=== PATIENT | female | born 1965 | race Caucasian/White ===

== ENCOUNTER → 2023-06-28 | Outpatient (REF) | payer BC, SELFPAY | LOC: DHSLP | PROVIDERS: ATTENDING PHYSICIAN Internal Medicine Critical Care Medicine; FAMILY PHYSICIAN Family Medicine | DX: G47.33 Obstructive sleep apnea (adult) (pediatric) (principal) | CPT/HCPCS: 95800 ==

== ENCOUNTER 2023-08-14 07:00 | Emergency (ER) | payer BC, SELFPAY ==
[2023-08-14 07:08] VITALS: BP 180/86
[2023-08-14 07:38] VITALS: BP 164/65
--- NOTE | 2023-08-14 07:41 | ED.GENMED ---
History of Present Illness
General
Chief Complaint: Chest Pain
Source: patient
Exam Limitations: none
Time Seen by Provider: 08/14/23 07:20
History of Present Illness
History of Present Illness:
58 -year-old female with history of angina presents complaining of onset of chest pain has been persistent since she woke up this morning at 530. Has a thumping sensation to the left upper chest with associated shortness of breath. She has had
stress test. She had a catheterization. There was no large vessel disease. She is on amlodipine, isosorbide as well as sublingual nitroglycerin as needed. Sublingual tablet today. She works as a registrar here and on her way into work to
develop more discomfort and checked in for evaluation she is due for a carotid ultrasound later today. She follows with cardiology here. She notes her pain is significantly improved while sitting in bed. She also notes leg cramps last evening
which was atypical for her. She denies any recent extended travel but does note a week ago she drove 2 and half hours in a car.
Past History
Past History
ED Past Medical History: Hypercholesterolemia and NIDDM
ED Past Surgical History: Orthopedic and Tonsilectomy
Social History
Tobacco: Non-smoker
Alcohol: None
Drug: None
Personal: Single
Living: alone
Employment: Employed
Phy Exam
Physical Exam
Physical Exam:
General: Well-appearing female no acute respiratory distress HEENT: Normocephalic atraumatic
Heart: Regular rate and rhythm no audible murmurs
Lungs: Clear no wheeze or rales
Abdomen is soft nontender nondistended no guarding or rebound
Extremities: No cyanosis but mild edema noted to lower extremities bilaterally
Skin: Warm no rash
Scores
Heart Score for Chest Pain Patients
STEMI patient?: No
History: Slightly or Non-Suspicious
ECG: Normal
Age: >45 - <65 years
Risk Factors: No Risk Factors
Troponin: </= Normal Limit
Heart Score for Chest Pain Patients: 1
Heart Score Risk: 2.5% MACE over next 6 weeks
Course
Orders/Labs/Results
Orders:
Orders
08/14/23 07:01
ECG [Electrocardiogram (*1)] Urgent
Reason for Study: Chest Pain
EKG- Treatment ONCE
08/14/23 07:36
CMP [Comprehensive Metabolic Panel] Urgent
Complete Blood Count/With Diff Urgent
D-Dimer Urgent
Magnesium Urgent
Comment: ADD ON
Troponin I Urgent
08/14/23 07:41
Add On- LAB Urgent
Tests Added?: magnesium
08/14/23 08:33
CR Chest - 2 Views Urgent
Comment:
Reason For Exam: chest pain
08/14/23 10:38
Troponin I Urgent
Abnormal Lab Results
08/14/23
07:36
MPV 10.8 H fL
(7.4-10.4)
BUN 19 H mg/dl
(7-17)
Glucose 133 H mg/dl
(70-99)
08/14/23 07:36
08/14/23 07:36
Vital Signs
Initial and Last Documented VS:
Initial Vital Signs
Temp Pulse Resp BP Pulse Ox
98.4 F 90 18 180/86 98
08/14/23 07:08 08/14/23 07:08 08/14/23 07:08 08/14/23 07:08 08/14/23 07:08
Last Documented Vital Signs
Temp Pulse Resp BP Pulse Ox
98.4 F 66 10 161/65 100
08/14/23 07:08 08/14/23 09:30 08/14/23 09:30 08/14/23 09:28 08/14/23 09:30
MDM/Problems Addressed
Differential Diagnosis Includes:
Chest discomfort. Consider ACS versus recurrent angina versus PE versus referred discomfort from reflux.
EKG shows sinus rhythm without ischemic changes. Will check labs including troponin and D-dimer.
*Critical Care Note
Total Time (30-74mins, 75-104mins- exclusive of procedures): Not Applicable
Update Note
Update Note:
Initial and repeat troponin both undetectable. D-dimer negative. Chest x-ray clear. Do not suspect PE. Do not suspect ACS. Patient has documented history of angina. Could be exacerbation of such. Stable for discharge but chest pain hotline
will be activated for her.
ED Attending Note
-
Portions of this chart may have been created with voice recognition software.� Occasional wrong word or��sound alike� substitutions may have occurred due to the inherent limitations of voice recognition software.
Discharge Plan
Departure
Patient Disposition: Home (Routine Discharge)
Date of Disposition: 08/14/23
Time of Disposition: 11:20
Patient with high blood pressure during this ER visit?: No
Discharge Problem:
Chest pain
Instructions: Chest Pain CBC Follow Up
Prescriptions:
No Action
cetirizine [Zyrtec] 10 mg Tablet
10 mg PO DAILY
meloxicam 7.5 mg tablet
7.5 mg PO DAILY
estradiol 0.5 mg tablet
0.5 mg PO DAILY
atorvastatin 40 mg Tablet
40 mg PO QPM Qty: 30 0RF
aspirin 81 mg Tablet,Chewable
81 mg PO DAILY Qty: 30 0RF
isosorbide mononitrate 30 mg Tablet Extended Release 24 Hr
30 mg PO DAILY Qty: 30 0RF
amlodipine 5 mg Tablet
5 mg PO DAILY Qty: 30 0RF
pantoprazole 40 mg Tablet,Delayed Release (Dr/Ec)
40 mg PO DAILY Qty: 30 0RF
nitroglycerin 0.4 mg Tablet, Sublingual
0.4 mg sublingual [id number] PRN (Reason: chest pain) Qty: 30 0RF
(DME) Contour Next Test Strips Strip
Qty: 100 0RF
Rx Instructions:
As Directed
(DME) lancets [Color Lancets] 21 gauge Misc
Qty: 100 0RF
Rx Instructions:
As Directed
Referrals:
Wolfgang Ontiveros DO [Family Provider] -
Activity Restrictions/Additional Instructions:
Please return here for worsening symptoms otherwise follow-up with cardiology
Interventions
Interventions:
*Risk Screen - Suicide Last Done: 08/14/23 07:08
*General Assessment Last Done: 08/14/23 07:08
*Neglect/Abuse Screening Last Done: 08/14/23 07:08
ED- Fall Risk Assessment Last Done: 08/14/23 07:46
ED- Cardiac Assessment Last Done: 08/14/23 07:46
Discharge Date and Time
Print Language: ITALIAN
[2023-08-14 07:48] LABS: % Basophils 1.3 % (0-2); % Eosinophils 2.4 % (0-6); % Immature Granulocytes 0.3 % (0-0.5); % Lymphocytes 25.6 % (20.5-51.1); % Monocytes 7.4 % (1.7-9.3); Absolute Basophils 0.1 10^3/uL (0-0.2); Absolute Eosinophils 0.2 10^3/uL (0-0.7); Absolute Lymphocytes 1.6 10^3/uL (1.2-3.4); Absolute Monocytes 0.5 10^3/uL (0.1-0.6); Absolute Neutrophils 3.9 10^3/uL (1.4-6.5); Hematocrit 37.4 % (37.0-47.0); Hemoglobin 13.3 g/dL (12.0-16.0); Mean Corp Hgb Conc. 35.6 g/dL (33.0-37.0); Mean Corpuscular Hgb 29.3 pg (27.0-31.0); Mean Corpuscular Volume 82.4 fL (81.0-99.0); Mean Platelet Volume 10.8 fL (7.4-10.4); Nucleated Red Blood Cells % 0 %; Platelet Count 189 10^3/uL (130-400); Red Blood Cell Count 4.54 10^6/uL (4.20-5.40); Red Cell Dist. Width 12.5 % (11.5-14.5); White Blood Cell Count 6.2 10^3/uL (4.8-10.8)
[2023-08-14 08:00] VITALS: BP 134/60
[2023-08-14 08:00] LABS: ALT (SGPT) 23 U/L (0-35); AST (SGOT) 26 U/L (14-36); Albumin 4.7 g/dl (3.5-5.0); Alkaline Phosphatase 60 U/L (38-126); Blood Urea Nitrogen 19 mg/dl (7-17); Calcium 9.7 mg/dl (8.4-10.2); Carbon Dioxide 26 mmol/L (22-30); Chloride 105 mmol/L (98-107); Glucose 133 mg/dl (70-99); Potassium 3.7 mmol/L (3.5-5.1); Sodium 141 mmol/L (135-145); Total Bilirubin 0.5 mg/dl (0.2-1.3); Total Protein 7.4 g/dl (6.3-8.2); eGFR > 60.00
[2023-08-14 08:11] LABS: Troponin I < 0.012 ng/ml
[2023-08-14 08:18] LABS: Magnesium 2.2 mg/dl (1.6-2.3)
[2023-08-14 08:29] LABS: D-Dimer 0.38 ug/mlFEU (0.00-0.50)
[2023-08-14 09:28] VITALS: BP 161/65
[2023-08-14 10:00] VITALS: BP 131/59
[2023-08-14 11:00] VITALS: BP 137/47
[2023-08-14 11:17] LABS: Troponin I < 0.012 ng/ml
== END 2023-08-14 11:45 | disposition home or self-care (01) ==
LOC: EMR 07:00
PROVIDERS: Physician Assistant; EMERGENCY PHYSICIAN Emergency Medicine; FAMILY PHYSICIAN Family Medicine
DX: R07.89 Other chest pain (principal)
CPT/HCPCS: 99285; 71046; 80053; 83735; 84484; 85025; 85379; 93005

== ENCOUNTER → 2023-08-14 14:03 | Outpatient (REF) | payer BC, SELFPAY | LOC: RAD 14:03 | PROVIDERS: ATTENDING PHYSICIAN Internal Medicine; FAMILY PHYSICIAN Family Medicine | DX: I20.89 Other forms of angina pectoris (principal); I35.1 Nonrheumatic aortic (valve) insufficiency | CPT/HCPCS: 93880 ==

== ENCOUNTER 2023-10-10 15:08 | Emergency (ER) | payer BC, SELFPAY ==
[2023-10-10 15:21] VITALS: BP 145/71
[2023-10-10 15:54] LABS: % Basophils 1.3 % (0-2); % Eosinophils 3.2 % (0-6); % Immature Granulocytes 0.2 % (0-0.5); % Lymphocytes 27.1 % (20.5-51.1); % Monocytes 5.7 % (1.7-9.3); % Neutrophils 62.5 % (42.2-75.2); Absolute Basophils 0.1 10^3/uL (0-0.2); Absolute Eosinophils 0.2 10^3/uL (0-0.7); Absolute Lymphocytes 1.7 10^3/uL (1.2-3.4); Absolute Monocytes 0.4 10^3/uL (0.1-0.6); Absolute Neutrophils 3.9 10^3/uL (1.4-6.5); Hematocrit 36.7 % (37.0-47.0); Hemoglobin 13.1 g/dL (12.0-16.0); Mean Corp Hgb Conc. 35.7 g/dL (33.0-37.0); Mean Corpuscular Hgb 29.1 pg (27.0-31.0); Mean Corpuscular Volume 81.6 fL (81.0-99.0); Mean Platelet Volume 10.7 fL (7.4-10.4); Nucleated Red Blood Cells % 0 %; Platelet Count 176 10^3/uL (130-400); Red Cell Dist. Width 12.4 % (11.5-14.5); White Blood Cell Count 6.2 10^3/uL (4.8-10.8)
[2023-10-10 16:00] VITALS: BP 142/77
[2023-10-10 16:24] LABS: ALT (SGPT) 33 U/L (0-35); AST (SGOT) 31 U/L (14-36); Albumin 4.8 g/dl (3.5-5.0); Alkaline Phosphatase 49 U/L (38-126); Blood Urea Nitrogen 20 mg/dl (7-17); Calcium 9.9 mg/dl (8.4-10.2); Carbon Dioxide 28 mmol/L (22-30); Chloride 101 mmol/L (98-107); Glucose 117 mg/dl (70-99); Potassium 4.1 mmol/L (3.5-5.1); Sodium 141 mmol/L (135-145); Total Bilirubin 0.6 mg/dl (0.2-1.3); Total Protein 7.2 g/dl (6.3-8.2); eGFR > 60.00
[2023-10-10 17:40] VITALS: BP 144/73; BP 150/58; BP 163/61; PULSE 68; PULSE 70; PULSE 77
[2023-10-10] MEDS: TYLENOL 1000 MG PO (17:44)
[2023-10-10 17:54] LABS: Erythrocyte Sed Rate 16 mm/hour (0-20)
[2023-10-10 18:00] VITALS: BP 138/61
--- NOTE | 2023-10-10 20:03 | ED.GENMED ---
History of Present Illness
General
Chief Complaint: Extremity Pain (non-traumatic)
Source: patient
Exam Limitations: none
Time Seen by Provider: 10/10/23 17:29
Nursing documentation reviewed up to this point in time: agreed with
History of Present Illness
History of Present Illness:
Patient to ED wt complaint of pain and burning to BLE. State she restarted statin 2 weeks ago and has had symptms since. Initially taken off statins due to muscle pain. This pain feels different. Reports legs turn red when standing. Denies
fever/chills, recent illness. Brought to ED b spouse for eval.
Past History
Past History
ED Past Medical History: Hypercholesterolemia and NIDDM
ED Past Surgical History: Orthopedic and Tonsilectomy
Social History
Tobacco: Non-smoker
Alcohol: None
Drug: None
Personal: Single
Living: alone
Employment: Employed
Review of Systems
Review of Systems
Allergies reviewed?: Yes
All Other Systems: ROS reviewed and negative except as documented in HPI and ROS
Constitutional: Reports no symptoms
EENT: Reports no symptoms
Respiratory: Reports no symptoms
Cardiac: Reports no symptoms
ABD/GI: Reports no symptoms
Musculoskeletal: Reports other (Pain and burning to BLE)
Neurological: Reports no symptoms
Psychiatric: Reports no symptoms
Phy Exam
General Physical Exam
General Presentation: well appearing and no apparent distress
General age: appears stated age
General Skin: warm and dry
General Habitus: normal
General Mental: alert
Cardiovascular Exam
Cardiovascular Exam: regular rate/rhythm and no edema
Pulmonary Exam
Pulmonary Exam: lungs clear and no respiratory distress
Musculoskeletal Exam
Musculoskeletal Exam: full ROM, no edema and neuro vasc intact
Skin Exam
Skin Exam: normal color, warm/dry and no rash
Psychiatric Exam
Psychiatric Exam: normal mood/affect
Course
Orders/Labs/Results
Orders:
Orders
10/10/23 15:26
Electrocardiogram (*1) Urgent
Reason for Study: Vertigo / Dizzy
EKG- Treatment ONCE
10/10/23 15:44
C-Reactive Protein Urgent
Comment: ADD ON
CMP [Comprehensive Metabolic Panel] Urgent
Complete Blood Count/With Diff Urgent
Erythrocyte Sed Rate Urgent
Comment: ADD ON
10/10/23 17:30
Add On- LAB Urgent
Tests Added?: CRP, sed rate
10/10/23 17:40
Orthostatic VS- Treatment ONCE
Acetaminophen [Tylenol] 1,000 mg PO NOW STA
10/10/23 17:42
Acetaminophen [Tylenol] 1,000 mg .ROUTE .STK-MED ONE
US Periph Venous LOWER Ext Jairon Urgent
Comment:
Reason For Exam: BLE pain and swelling.
Abnormal Lab Results
10/10/23
15:44
Hct 36.7 L %
(37.0-47.0)
MPV 10.7 H fL
(7.4-10.4)
BUN 20 H mg/dl
(7-17)
Glucose 117 H mg/dl
(70-99)
10/10/23 15:44
10/10/23 15:44
Vital Signs
Initial and Last Documented VS:
Initial Vital Signs
Temp Pulse Resp BP Pulse Ox
98.0 F 72 18 145/71 98
10/10/23 15:21 10/10/23 15:21 10/10/23 15:21 10/10/23 15:21 10/10/23 15:21
Last Documented Vital Signs
Temp Pulse Resp BP Pulse Ox
98.0 F 72 18 138/61 99
10/10/23 15:21 10/10/23 18:00 10/10/23 18:00 10/10/23 18:00 10/10/23 18:00
*Radiology
Radiology exam reviewed: radiology read reviewed
*Pulse Oximetry
Patient hypoxic: no
*Critical Care Note
Total Time (30-74mins, 75-104mins- exclusive of procedures): Not Applicable
ED Attending Note
-
Portions of this chart may have been created with voice recognition software.� Occasional wrong word or��sound alike� substitutions may have occurred due to the inherent limitations of voice recognition software.
Discharge Plan
Departure
Patient Disposition: Home (Routine Discharge)
Date of Disposition: 10/10/23
Time of Disposition: 19:45
Patient with high blood pressure during this ER visit?: No
Condition: Good
Covid-19: Not Applicable
Discharge Problem:
Leg pain
Instructions: Muscle and Bone Pain (DC)
Prescriptions:
No Action
cetirizine [Zyrtec] 10 mg Tablet
10 mg PO DAILY
meloxicam 7.5 mg tablet
7.5 mg PO DAILY
estradiol 0.5 mg tablet
0.5 mg PO DAILY
atorvastatin 40 mg Tablet
40 mg PO QPM Qty: 30 0RF
aspirin 81 mg Tablet,Chewable
81 mg PO DAILY Qty: 30 0RF
isosorbide mononitrate 30 mg Tablet Extended Release 24 Hr
30 mg PO DAILY Qty: 30 0RF
amlodipine 5 mg Tablet
5 mg PO DAILY Qty: 30 0RF
pantoprazole 40 mg Tablet,Delayed Release (Dr/Ec)
40 mg PO DAILY Qty: 30 0RF
nitroglycerin 0.4 mg Tablet, Sublingual
0.4 mg sublingual [id number] PRN (Reason: chest pain) Qty: 30 0RF
(DME) Contour Next Test Strips Strip
Qty: 100 0RF
Rx Instructions:
As Directed
(DME) lancets [Color Lancets] 21 gauge Misc
Qty: 100 0RF
Rx Instructions:
As Directed
Referrals:
Wolfgang Ontiveros DO [Family Provider] - Follow up in 2-3 days
Interventions
Interventions:
*Risk Screen - Suicide Last Done: 10/10/23 17:49
*General Assessment Last Done: 10/10/23 17:49
*Neglect/Abuse Screening Last Done: 10/10/23 17:49
ED- Fall Risk Assessment Last Done: 10/10/23 20:00
*ED COVID-19 Vaccine History Last Done: 10/10/23 17:49
*Nursing Disposition Last Done: 10/10/23 20:00
ED-Skin Assessment Last Done: 10/10/23 17:49
ED-Peripheral Vascular Assessment Last Done: 10/10/23 17:49
ED-Musculoskeletal Assessment Last Done: 10/10/23 17:49
Discharge Date and Time
Discharge Date/Time: 10/10/23 20:01
Print Language: LATVIAN
== END 2023-10-10 20:01 | disposition home or self-care (01) ==
LOC: EMR 15:08
PROVIDERS: Student in an Organized Health Care Education/Training Program; EMERGENCY PHYSICIAN Emergency Medicine; FAMILY PHYSICIAN Family Medicine
DX: M79.662 Pain in left lower leg (principal); M79.661 Pain in right lower leg; R42 Dizziness and giddiness; R51.9 Headache, unspecified; R11.0 Nausea; R68.83 Chills (without fever); M79.10 Myalgia, unspecified site; E11.9 Type 2 diabetes mellitus without complications; E78.00 Pure hypercholesterolemia, unspecified; Z79.82 Long term (current) use of aspirin; Z88.5 Allergy status to narcotic agent; Z88.0 Allergy status to penicillin; Z91.013 Allergy to seafood; Z88.2 Allergy status to sulfonamides; Z88.8 Allergy status to other drugs, medicaments and biological substances; Z91.018 Allergy to other foods
CPT/HCPCS: 99284; 80053; 85025; 85652; 86140; 93005; 93970

== ENCOUNTER 2024-02-22 14:33 | Emergency (ER) | payer BC, SELFPAY ==
[2024-02-22 14:38] VITALS: BP 145/57
--- NOTE | 2024-02-22 14:41 | ED.GENMED ---
ED Provider Triage
<LAXMI Mooney - Last Filed: 02/22/24 14:48>
-
Patient seen by provider in Triage?: Seen in Triage
Attestation: A medical screening examination has been initiated by a qualified medical provider. Based on the assessment performed at this time, it has been determined that an emergent medical condition may exist and the patient has been informed
that further medical evaluation and possible additional diagnostic testing may be needed.
HPI: 58 yr old female presents w/ allergic reaction.Pt had tuna around 1: 30 pm then felt scratchy throat and tongue burning/roof mouth felt funny. Pt reports 20 minutes block captain felt tightness in throat and felt 'neck glands swollen similar to prior
drug reactions .
Pt used her EpiPen.
pt now feels better. Throat is better but still feels scratchy /tongue up. feels like it is hard to swallow .
GENERAL: Alert , in no apparent distress
EYE: No visual abnormalities.
NECK: Trachea midline
ENT: No visible abnormalities, pharynx patent , tolerating secretions well ; no tongue swelling
LUNGS: No acute respiratory distress, lungs cta no wheezing
NEUROLOGICAL: Alert and oriented
SKIN: Skin intact. No visible changes.
MUSCULOSKELETAL: Moving extremities normally
PSYCH: Normal and appropriate interaction.
This is a medical evaluation conducted in person to initiate diagnostic evaluation and provide initial therapeutics. Please see further documentation by the treating clinician.
History of Present Illness
<LAXMI Mooney - Last Filed: 02/22/24 14:48>
General
Chief Complaint: Allergic Reaction
Time Seen by Provider: 02/22/24 18:05
<Eladio Barros PA-C - Last Filed: 02/22/24 23:25>
History of Present Illness
History of Present Illness:
58-year-old female presents to the emergency department for evaluation of an allergic developed after 2-day. She did use her EpiPen after that began. She is feeling improved at this time. No chest pain or dyspnea
Past History
<LAXMI Mooney - Last Filed: 02/22/24 14:48>
Past History
ED Past Medical History: Hypercholesterolemia and NIDDM
ED Past Surgical History: Orthopedic and Tonsilectomy
Social History
Tobacco: Non-smoker
Alcohol: None
Drug: None
Personal: Single
Living: alone
Employment: Employed
Review of Systems
<Eladio Barros PA-C - Last Filed: 02/22/24 23:25>
Review of Systems
Allergies reviewed?: Yes
All Other Systems: ROS reviewed and negative except as documented in HPI and ROS
Phy Exam
<Eladio Barros PA-C - Last Filed: 02/22/24 23:25>
Physical Exam
Physical Exam:
GEN: Well appearing, NAD, WDWN
HEENT: Oral mucosa moist, no scleral icterus, no oropharyngeal swelling
Cardiac: Regular rate
Lung: No respiratory distress, no tachypnea
MSK: No gross deformity or injuries
Skin: Good color, no pallor or jaundice, no rashes
Neuro: AO x3, moves all extremities freely
Psych: Calm, cooperative
Course
<LAXMI Mooney - Last Filed: 02/22/24 14:48>
Orders/Labs/Results
Orders:
Orders
02/22/24 14:46
Diphenhydramine [Benadryl] 50 mg PO NOW STA
Famotidine [Pepcid] 20 mg PO NOW STA
02/22/24 14:47
Dexamethasone Pf [Decadron] 10 mg PO NOW STA
Vital Signs
Initial and Last Documented VS:
Initial Vital Signs
Temp Pulse Resp BP Pulse Ox
98.5 F 82 18 145/57 100
02/22/24 14:38 02/22/24 14:38 02/22/24 14:38 02/22/24 14:38 02/22/24 14:38
Last Documented Vital Signs
Temp Pulse Resp BP Pulse Ox
97 F 77 16 130/57 100
02/22/24 15:50 02/22/24 15:50 02/22/24 15:50 02/22/24 15:50 02/22/24 15:50
<Eladio Barros PA-C - Last Filed: 02/22/24 23:25>
Orders/Labs/Results
Orders:
Orders
02/22/24 14:46
Diphenhydramine [Benadryl] 50 mg PO NOW STA
Famotidine [Pepcid] 20 mg PO NOW STA
02/22/24 14:47
Dexamethasone Pf [Decadron] 10 mg PO NOW STA
Vital Signs
Initial and Last Documented VS:
Initial Vital Signs
Temp Pulse Resp BP Pulse Ox
98.5 F 82 18 145/57 100
02/22/24 14:38 02/22/24 14:38 02/22/24 14:38 02/22/24 14:38 02/22/24 14:38
Last Documented Vital Signs
Temp Pulse Resp BP Pulse Ox
97 F 77 16 130/57 100
02/22/24 15:50 02/22/24 15:50 02/22/24 15:50 02/22/24 15:50 02/22/24 15:50
<Eladio Barros PA-C - Last Filed: 02/22/24 23:25>
MDM/Problems Addressed
MDM/Problems Addressed:
Clinically stable at this time, suitable for continued outpatient management
<Eladio Barros PA-C - Last Filed: 02/22/24 23:25>
*Critical Care Note
Total Time (30-74mins, 75-104mins- exclusive of procedures): Not Applicable
ED Attending Note
<LAXMI Mooney - Last Filed: 02/22/24 14:48>
-
Portions of this chart may have been created with voice recognition software.� Occasional wrong word or��sound alike� substitutions may have occurred due to the inherent limitations of voice recognition software.
Discharge Plan
Departure
Patient Disposition: Home (Routine Discharge)
Date of Disposition: 02/22/24
Time of Disposition: 18:16
Patient with high blood pressure during this ER visit?: No
Discharge Problem:
Allergic reaction
Instructions: Anaphylaxis
Prescriptions:
No Action
cetirizine [Zyrtec] 10 mg Tablet
10 mg PO DAILY
meloxicam 7.5 mg tablet
7.5 mg PO DAILY
estradiol 0.5 mg tablet
0.5 mg PO DAILY
atorvastatin 40 mg Tablet
40 mg PO QPM Qty: 30 0RF
aspirin 81 mg Tablet,Chewable
81 mg PO DAILY Qty: 30 0RF
isosorbide mononitrate 30 mg Tablet Extended Release 24 Hr
30 mg PO DAILY Qty: 30 0RF
amlodipine 5 mg Tablet
5 mg PO DAILY Qty: 30 0RF
pantoprazole 40 mg Tablet,Delayed Release (Dr/Ec)
40 mg PO DAILY Qty: 30 0RF
nitroglycerin 0.4 mg Tablet, Sublingual
0.4 mg sublingual [id number] PRN (Reason: chest pain) Qty: 30 0RF
(DME) Contour Next Test Strips Strip
Qty: 100 0RF
Rx Instructions:
As Directed
(DME) lancets [Color Lancets] 21 gauge Misc
Qty: 100 0RF
Rx Instructions:
As Directed
Interventions
Interventions:
*Risk Screen - Suicide Last Done: 02/22/24 14:38
*General Assessment Last Done: 02/22/24 14:38
*Neglect/Abuse Screening Last Done: 02/22/24 14:38
ED- Fall Risk Assessment Last Done: 02/22/24 18:26
*ED COVID-19 Vaccine History Last Done: 02/22/24 14:38
*Nursing Disposition Last Done: 02/22/24 18:44
ED- Cardiac Assessment Last Done: 02/22/24 18:26
ED- Pulmonary Assessment Last Done: 02/22/24 18:26
ED-Skin Assessment Last Done: 02/22/24 18:27
Discharge Date and Time
Discharge Date/Time: 02/22/24 18:45
Print Language: BERMUDIAN
[2024-02-22] MEDS: BENADRYL 50 MG PO (14:50)
[2024-02-22] MEDS: PEPCID 20 MG PO (14:50)
[2024-02-22] MEDS: DECADRON 10 MG PO (14:51)
[2024-02-22 15:50] VITALS: BP 130/57
== END 2024-02-22 18:45 | disposition home or self-care (01) ==
LOC: EMR 14:33
PROVIDERS: EMERGENCY PHYSICIAN Emergency Medicine; FAMILY PHYSICIAN Family Medicine
DX: T78.1XXA Other adverse food reactions, not elsewhere classified, initial encounter (principal); R09.89 Other specified symptoms and signs involving the circulatory and respiratory systems; X58.XXXA Exposure to other specified factors, initial encounter; E11.9 Type 2 diabetes mellitus without complications; E78.00 Pure hypercholesterolemia, unspecified
CPT/HCPCS: 99283

== ENCOUNTER → 2024-07-05 08:57 | Outpatient (REF) | payer BC, SELFPAY | LOC: HWRAD 08:57 | PROVIDERS: ATTENDING PHYSICIAN Nurse Practitioner Adult Health; FAMILY PHYSICIAN Family Medicine; REFERRING PHYSICIAN Internal Medicine | DX: R93.89 Abnormal findings on diagnostic imaging of other specified body structures (principal) | CPT/HCPCS: 71250 ==

== ENCOUNTER 2024-09-15 13:50 | Emergency (ER) | payer BC, SELFPAY ==
[2024-09-15 13:54] VITALS: BP 149/73
[2024-09-15 14:20] LABS: Hematocrit 38.1 % (37.0-47.0); Hemoglobin 13.3 g/dL (12.0-16.0); Mean Corp Hgb Conc. 34.9 g/dL (33.0-37.0); Mean Corpuscular Volume 84.1 fL (81.0-99.0); Nucleated Red Blood Cells % 0 %; Platelet Count 169 10^3/uL (130-400); Red Cell Dist. Width 12.3 % (11.5-14.5)
[2024-09-15 14:44] LABS: ALT (SGPT) 29 U/L (0-35); AST (SGOT) 26 U/L (14-36); Albumin 4.4 g/dl (3.5-5.0); Alkaline Phosphatase 37 U/L (38-126); Blood Urea Nitrogen 18 mg/dl (7-17); Calcium 9.4 mg/dl (8.4-10.2); Carbon Dioxide 28 mmol/L (22-30); Chloride 106 mmol/L (98-107); Glucose 98 mg/dl (70-99); Lipase 65 U/L (23-300); Potassium 4.2 mmol/L (3.5-5.1); Sodium 139 mmol/L (135-145); Total Protein 6.8 g/dl (6.3-8.2); eGFR > 60.00
--- NOTE | 2024-09-15 14:50 | ED.GENMED ---
History of Present Illness
General
Chief Complaint: Abdominal Symptoms
Source: patient
Time Seen by Provider: 09/15/24 14:16
History of Present Illness
History of Present Illness:
59-year-old female presents to the emergency room complaining of multiple episodes of diarrhea over the past several days. Patient states began feeling unwell about 3 days ago. She suspects that her symptoms began after eating chili. She
initially had some bloating and flatulence followed by diarrhea. She began having multiple episodes of watery diarrhea. She was having episodes of this frequently as every 1/2 hour or so. No nausea or vomiting. No fever or chills. She took
Imodium yesterday which did decrease the frequency of stools but did not make her diarrhea go away. She thought she might be getting to the end of her symptoms but this morning she again had explosive diarrhea. Some of her episodes of diarrhea
over the past couple days have been so urgent that she has not made it to the bathroom. No recent travel.
Past History
Past History
ED Past Medical History: Hypercholesterolemia and NIDDM
ED Past Surgical History: Orthopedic and Tonsilectomy
Social History
Tobacco: Non-smoker
Alcohol: None
Drug: None
Personal: Single
Living: alone
Employment: Employed
Phy Exam
Physical Exam
Physical Exam:
General: Awake, Alert, Oriented X3. No acute distress.
Vitals: unremarkable
Head: Atraumatic
Eyes: Pupils equal, EOMI
Throat: Airway intact, no exudates
Neck: Trachea midline
Lungs: Clear and equal b/l
Heart: Regular rate, no murmurs
Abd: Soft, Nontender, No pulsatile mass
Neuro: Nonfocal
Skin: Warm, dry, no rash
Extremities: pulses equal b/l, no edema
Course
Orders/Labs/Results
Orders:
Orders
09/15/24 14:00
IV Insert/Care/Rem.- Treatment PRN
09/15/24 14:06
Complete Blood Count/With Diff Urgent
Comprehensive Metabolic Panel Urgent
Lipase Urgent
09/15/24 14:49
0.9% Sodium Chloride 1000 ml [Nss] 1,000 ml IV BOLUS
Abnormal Lab Results
09/15/24
14:06
MPV 10.5 H fL
(7.4-10.4)
BUN 18 H mg/dl
(7-17)
Alkaline Phosphatase 37 L U/L
(38-126)
09/15/24 14:06
09/15/24 14:06
Vital Signs
Initial and Last Documented VS:
Initial Vital Signs
Temp Pulse Resp BP Pulse Ox
98.8 F 69 17 149/73 98
09/15/24 13:54 09/15/24 13:54 09/15/24 13:54 09/15/24 13:54 09/15/24 13:54
Last Documented Vital Signs
Temp Pulse Resp BP Pulse Ox
98.8 F 71 17 115/54 100
09/15/24 13:54 09/15/24 17:08 09/15/24 13:54 09/15/24 17:08 09/15/24 17:08
MDM/Problems Addressed
Differential Diagnosis Includes:
Viral gastroenteritis, toxin induced nausea vomiting diarrhea, dehydration, electrode abnormality
MDM/Problems Addressed:
Patient presents with nausea vomiting and diarrhea. Feels better after IV fluids. Hemodynamically stable. Feels better after IV fluids. Stable for discharge home.
*Pulse Oximetry
SaO2: 98
Oxygen Mode of Delivery: Room air
Patient hypoxic: no
*Critical Care Note
Total Time (30-74mins, 75-104mins- exclusive of procedures): Not Applicable
ED Attending Note
-
Portions of this chart may have been created with voice recognition software.� Occasional wrong word or��sound alike� substitutions may have occurred due to the inherent limitations of voice recognition software.
Discharge Plan
Departure
Patient Disposition: Home (Routine Discharge)
Date of Disposition: 09/15/24
Time of Disposition: 17:51
Patient with high blood pressure during this ER visit?: No
Condition: Good
Discharge Problem:
Diarrhea
Instructions: Diarrhea in teens and adults
Prescriptions:
No Action
cetirizine [Zyrtec] 10 mg Tablet
10 mg PO DAILY
meloxicam 7.5 mg tablet
7.5 mg PO DAILY
estradiol 0.5 mg tablet
0.5 mg PO DAILY
atorvastatin 40 mg Tablet
40 mg PO QPM Qty: 30 0RF
aspirin 81 mg Tablet,Chewable
81 mg PO DAILY Qty: 30 0RF
isosorbide mononitrate 30 mg Tablet Extended Release 24 Hr
30 mg PO DAILY Qty: 30 0RF
amlodipine 5 mg Tablet
5 mg PO DAILY Qty: 30 0RF
pantoprazole 40 mg Tablet,Delayed Release (Dr/Ec)
40 mg PO DAILY Qty: 30 0RF
nitroglycerin 0.4 mg Tablet, Sublingual
0.4 mg sublingual [id number] PRN (Reason: chest pain) Qty: 30 0RF
(DME) Contour Next Test Strips Strip
Qty: 100 0RF
Rx Instructions:
As Directed
(DME) lancets [Color Lancets] 21 gauge Misc
Qty: 100 0RF
Rx Instructions:
As Directed
Referrals:
Wolfgang Ontiveros DO [Family Provider, Family Practice]
Interventions
Interventions:
*Risk Screen - Suicide Last Done: 09/15/24 13:56
*General Assessment Last Done: 09/15/24 13:56
*Neglect/Abuse Screening Last Done: 09/15/24 13:56
*ED COVID-19 Vaccine History Last Done: 09/15/24 13:56
*Nursing Disposition Last Done: 09/15/24 17:57
OE-Kpdpfj-Mzlfagjwiz Assessment Last Done: 09/15/24 14:02
Discharge Date and Time
Discharge Date/Time: 09/15/24 17:58
Print Language: LITHUANIAN
[2024-09-15] MEDS: NSS 1000 IV (14:53)
[2024-09-15 17:08] VITALS: BP 115/54
== END 2024-09-15 17:58 | disposition home or self-care (01) ==
LOC: EMR 13:50
PROVIDERS: EMERGENCY PHYSICIAN Emergency Medicine; FAMILY PHYSICIAN Family Medicine
DX: R19.7 Diarrhea, unspecified (principal); E11.9 Type 2 diabetes mellitus without complications; E78.00 Pure hypercholesterolemia, unspecified
CPT/HCPCS: 99283; 80053; 83690; 85025

== ENCOUNTER → 2024-09-21 10:35 | Outpatient (REF) | payer BC, SELFPAY | LOC: REG 10:35 | PROVIDERS: ATTENDING PHYSICIAN Nurse Practitioner Family; FAMILY PHYSICIAN Family Medicine | DX: R19.7 Diarrhea, unspecified (principal) | CPT/HCPCS: 87045; 87046; 87077; 87324; 87328; 87329; 87427; 87449; 89055 ==

== ENCOUNTER → 2024-10-11 09:56 | Outpatient (REF) | payer BC, SELFPAY ==
[2024-10-11 11:28] LABS: ALT (SGPT) 37 U/L (0-35); AST (SGOT) 34 U/L (14-36); Albumin 4.4 g/dl (3.5-5.0); Alkaline Phosphatase 44 U/L (38-126); Amylase 50 U/L (30-110); Blood Urea Nitrogen 17 mg/dl (7-17); Calcium 9.5 mg/dl (8.4-10.2); Carbon Dioxide 26 mmol/L (22-30); Chloride 104 mmol/L (98-107); Glucose 94 mg/dl (70-99); HDL Cholesterol 52 mg/dl; LDL Cholesterol, Calculated 128 mg/dl; Lipase 66 U/L (23-300); Potassium 4.3 mmol/L (3.5-5.1); Sodium 136 mmol/L (135-145); Total Protein 6.9 g/dl (6.3-8.2); Very Low Density Lipoprotein 14 mg/dl (0-30); eGFR > 60.00
[2024-10-11 12:26] LABS: TSH 2.01 uIU/ml (0.47-4.68)
[2024-10-11 12:32] LABS: Glycohemoglobin (HgbA1c) 5.3 % (4.0-5.6)
== END ==
LOC: REG 09:56
PROVIDERS: ATTENDING PHYSICIAN Nurse Practitioner Family; FAMILY PHYSICIAN Family Medicine
DX: R19.7 Diarrhea, unspecified (principal); E78.2 Mixed hyperlipidemia
CPT/HCPCS: 36415; 80053; 80061; 82150; 83036; 83690; 84439; 84443

== ENCOUNTER → 2024-12-04 10:21 | Outpatient (REF) | payer BC, SELFPAY | LOC: WDC 10:21 | PROVIDERS: ATTENDING PHYSICIAN Family Medicine | DX: Z12.31 Encounter for screening mammogram for malignant neoplasm of breast (principal); Z13.820 Encounter for screening for osteoporosis; M81.0 Age-related osteoporosis without current pathological fracture | CPT/HCPCS: 77063; 77067; 77080 ==